=== PATIENT | female | born 1985 | race Caucasian/White ===

== ENCOUNTER → 2017-10-04 | Outpatient (CLI) | payer OTHER ==
--- NOTE | 2017-10-04 16:15 | DIAGNOSTIC IMAGING REPORT ---
L-SPINE MIN 4 VIEWS ROUTINE CLINICAL HISTORY: 32 years-old Female presenting with LOWER BACK PAIN. TECHNIQUE: Frontal, bilateral oblique, lateral and coned in lateral views of the lumbar spine. COMPARISON: None. FINDINGS: No scoliosis. Normal lumbar lordosis. Vertebral bodies maintain normal height and alignment. Intervertebral disc spaces preserved. No compression deformity or subluxation. No degenerative change. No osseous neural foraminal narrowing. Moderate stool burden. IMPRESSION: 1. Normal lumbar spine. 2. Constipation suggested by moderate stool burden. Electronically signed by: Delfino Omalley M.D. 10/04/2017 4:14 PM Dictated Date/Time: 10/04/2017 4:07 PM
--- NOTE | 2017-10-04 16:16 | DIAGNOSTIC IMAGING REPORT ---
SACRUM AND COCCYX 3 VIEWS CLINICAL HISTORY: Low back pain. FINDINGS: 3 views of the sacrum and coccyx are obtained. No prior studies are available for comparison at the time of dictation. The skeletal structures are well mineralized. There is no radiographic evidence of sacrococcygeal fracture. The sacroiliac joints are normal in appearance. The remainder of the bony pelvis and hip joints are normal as visualized. The overlying soft tissues are within normal limits. IMPRESSION: Unremarkable radiographic evaluation of the sacrum and coccyx. Electronically signed by: Bulmaro Zavala M.D. 10/04/2017 4:15 PM Dictated Date/Time: 10/04/2017 4:08 PM
== END | disposition home or self-care (01) ==
LOC: C.RAD 15:35
PROVIDERS: ATTEND Nurse Practitioner Family
DX: M54.5 Low back pain (principal)